=== PATIENT | male | born 1950 | race Caucasian/White ===

== ENCOUNTER → 2016-08-17 | Day surgery (SDC) | payer OTHER ==
[~2016-08-17] MED LIST: ACCUTES FINGER L1; ACETAMINOPHEN 325 MG TAB ONE; CEPH500C3 PO; DICL75 PO; FENO1TAB76 PO; GLUCTAB PO; GLYB5TAB3 PO; LACTATED RINGER'S 1000 ML INJ 1,000 ML ONE; LISI-363 PO; METF-382 PO; MIDAZOLAM HCL 2 MG/2 ML VIAL ONE; MOXIFLOXACIN 0.5% OPHT SOLN 3 ML BTL ONE; OMEP20TA PO; ONDANSETRON HCL 4 MG/2 ML VIAL IV PUSH ONE; PHENYLEPHRINE HCL 10% OPTH SOLN 5 ML BTL ONE; PROPARACAINE HCL 0.5% OPHT SOLN 15 ML BTL RIGHT EYE ONE; PROPOFOL 200 MG/20 ML AMP IV ONE; SIMV20 PO; SULF1TAB47 PO; TRIAMCINOLONE ACETONIDE 40 MG/ML VIAL ONE; [UNRECOGNIZED DRUG - SUPPLY] FINGER L1; prednisoLONE ACETATE 1% OPHT SUSP 5 ML BTL ONE
--- NOTE | 2016-08-19 13:21 | MP ---
cc: TEO DU MD DATE OF SURGERY 08/19/2016 PREOPERATIVE DIAGNOSES 1. Retained nuclear sclerotic cataract material right eye. 2. Possible retinal tear or detachment right eye. POSTOPERATIVE DIAGNOSES 1. Retained nuclear sclerotic cataract material right eye. 2. Possible retinal tear or detachment right eye. PROCEDURE Pars plana vitrectomy, removal of retained nuclear sclerotic cataract, endolaser, air-fluid exchange, insertion of 14% SF6 gas right eye. COMPLICATIONS None. BLOOD LOSS Less 1 cc. ANESTHESIA general Obed. INDICATION FOR PROCEDURE This patient presented with dislocated nuclear sclerotic cataract in his right eye. The patient elected for surgical correction. PROCEDURE NOTE After informed consent was obtained, the right eye was prepped and draped in sterile fashion with Betadine in the conjunctival fornix. A three-port pars plana vitrectomy was established with self-retaining infusion cannula. Core vitreous was evacuated and the nuclear sclerotic cataract fragments were removed with the vitrector. Scleral depression examination revealed a small infratemporal retinal tear which was treated with endolaser. Air-fluid exchange was carried out and 14% SF6 gas was instilled. The temporal clear corneal incision was closed with 10-0 nylon suture. Trocars were removed and sclerotomies were closed. The subconjunctival injection of Ancef and dexamethasone were given. The eye was patched with Tobramycin ointment. The patient was brought to the recovery room in stable condition. He is to continue followup with [facility] for his postoperative care. MD STEVE Ortiz/SSB /8:24 AM /12:35 PM
== END | disposition home or self-care (01) ==
LOC: ESDC 10:52
PROVIDERS: ATTEND Ophthalmology
DX: H25.11 Age-related nuclear cataract, right eye (principal); H33.311 Horseshoe tear of retina without detachment, right eye
CPT/HCPCS: 00145; 67043; J2250; J2405; J3010; J3301; J7120

== ENCOUNTER 2016-08-27 13:33 | Day surgery (SDC) | payer OTHER ==
[~2016-08-27] VITALS: Ht 152.4 cm; Wt 98.0 kg
[~2016-08-27 13:33] MED LIST changes: -ACETAMINOPHEN 325 MG TAB ONE; +ATROPINE SULFATE 1% OPHT SOLN 2 ML BTL ONE; +BUPIVACAINE HCL PF 0.75% 10 ML VIAL ONE; +DEXAMETHASONE SOD PHOS 4 MG/ML VIAL ONE; +EPINEPHrine HCL (1:1000) 1 MG/ML VIAL ONE; +GENTAMICIN SULFATE 80 MG/2 ML VIAL ONE; +LACTATED RINGER'S 1000 ML INJ 1,000 ML IV ONE; -LACTATED RINGER'S 1000 ML INJ 1,000 ML ONE; +LIDOCAINE HCL 2% 50 ML VIAL ONE; -METF-382 PO; -MIDAZOLAM HCL 2 MG/2 ML VIAL ONE; -MOXIFLOXACIN 0.5% OPHT SOLN 3 ML BTL ONE; -PHENYLEPHRINE HCL 10% OPTH SOLN 5 ML BTL ONE; -PROPARACAINE HCL 0.5% OPHT SOLN 15 ML BTL RIGHT EYE ONE; +STERILE WATER FOR INJ 20 ML VIAL ONE; +TOBRAMYCIN/DEXAMETHASONE OPTH OINT 3.5 GM TUBE ONE; +ePHEDrine/NS 25 MG/5 ML SYR IV ONE; -prednisoLONE ACETATE 1% OPHT SUSP 5 ML BTL ONE
[2016-08-27] MEDS ORDERED: METOPROLOL TARTRATE 25 MG TAB PO PRN (14:15)
[2016-08-27] MEDS ORDERED: LACTATED RINGER'S 1000 ML IV PRN (14:15)
[2016-08-27] MEDS ORDERED: POVIDONE IODINE 5% (ANTISEPSIS KIT) 4 APPLICATIONS EACH NARE PRN (14:15)
[2016-08-27] MEDS ORDERED: ATROPINE SULFATE 1% OPHT SOLN 5 ML BTL RIGHT EYE SCH (14:15)
[2016-08-27] MEDS ORDERED: CHLORHEXIDINE GLUCONATE 2 % 1 PACK (2 CLOTHS) TOPICAL PRN (14:15)
[2016-08-27] MEDS ORDERED: INSULIN HUMAN REGULAR 1,000 UNITS/10 ML VIAL SQ PRN (14:15)
[2016-08-27] MEDS ORDERED: SODIUM CHLORID 0.9% 500 ML IV PRN (14:15)
[2016-08-27] MEDS ORDERED: GLYB5TAB3 PO (14:17)
[2016-08-27] MEDS ORDERED: METF-382 PO (14:17)
[2016-08-27 14:36] VITALS: BP 132/70; PULSE 89; RESP 16; TEMP 97.8; O2SAT 98
[2016-08-27] MEDS ORDERED: TOBRAMYCIN 0.3%/DEXAMETHASONE 0.1% OPHT SUSP 5 ML BTL ONE (14:39)
[2016-08-27] MEDS ORDERED: ATROPINE SULFATE 1% OPHT SOLN 2 ML BTL ONE (14:56)
[2016-08-27] MEDS ORDERED: TROPICAMIDE 1% OPHT SOLN 15 ML BTL ONE (14:56)
[2016-08-27] MEDS: CYCLOPENTOLATE HCL 1% OPHT SOLN 2 ML BTL RIGHT EYE SCH ×2 (16:25→16:40)
[2016-08-27] MEDS: TROPICAMIDE 1% OPTH SOLN 2 ML BTL RIGHT EYE SCH ×2 (16:25→16:40)
[2016-08-27] MEDS: PHENYLEPHRINE HCL 2.5% OPTH SOLN 2 ML BTL RIGHT EYE SCH ×2 (16:25→16:40)
[2016-08-27] MEDS ORDERED: FAMOTIDINE 20 MG/2 ML VIAL IV PUSH ONE (16:38)
[2016-08-27] MEDS ORDERED: MIDAZOLAM HCL 2 MG/2 ML VIAL IV PUSH ONE (16:38)
[2016-08-27] MEDS ORDERED: FAMOTIDINE 20 MG/2 ML VIAL ONE (16:57)
[2016-08-27] MEDS ORDERED: MIDAZOLAM HCL 2 MG/2 ML VIAL ONE (16:57)
[2016-08-27] MEDS ORDERED: prednisoLONE ACETATE 1% OPHT SUSP 5 ML BTL RIGHT EYE ONE (17:00)
[2016-08-27] MEDS ORDERED: MOXIFLOXACIN 0.5% OPHT SOLN 3 ML BTL RIGHT EYE ONE (17:00)
[2016-08-27] MEDS ORDERED: BALANCED SALT SOLN OPHT IRRIG 15 ML BTL ONE (17:15)
[2016-08-27] MEDS ORDERED: STERILE WATER FOR INJ 20 ML VIAL ONE (19:09)
[2016-08-27] MEDS ORDERED: ceFAZolin INJ 1,000 MG VIAL ONE (19:09)
[2016-08-27] MEDS ORDERED: TOBRAMYCIN/DEXAMETHASONE OPTH OINT 3.5 GM TUBE ONE (19:25)
[2016-08-27] MEDS ORDERED: DO NOT ADM ANY ANTICOAGULANT DRUGS PRN (19:38)
[2016-08-27 21:45] VITALS: BP 145/73; PULSE 83; RESP 20; TEMP 98.1; O2SAT 93
--- NOTE | 2016-08-28 14:39 | EKG ---
Date Performed: 08/27/2016 Time Performed: 14:21:11 PTAGE: 65 years EKG: Sinus rhythm NORMAL ECG NO PREVIOUS TRACING DOCTOR: Eugenio Shah Interpretating Date/Time 08/28/2016 14:37:59
--- NOTE | 2016-08-29 10:47 | MP ---
cc: TEO DU MD DATE OF SURGERY: 08/28/2016 PREOPERATIVE DIAGNOSIS: Retinal detachment, right eye. POSTOPERATIVE DIAGNOSIS: Retinal detachment, right eye. OPERATION: Pars vitrectomy, retinal detachment repair, scleral buckle placement, air-fluid exchange, endolaser, insertion of 16% C3F8 gas right eye. COMPLICATIONS None BLOOD LOSS Less than [address] Lindsay. INDICATIONS FOR PROCEDURE: This is a delightful patient who presented with retinal detachment of his right eye. The patient originally underwent removal of dislocated cataract and was found to have a inferior retinal break. The patient was unable to maintain face-down postoperative positioning and developed a retinal detachment. The patient elected for surgical correction at this time point. PROCEDURE NOTE: After informed consent was obtained, the patient was brought to the operating room. General anesthesia was established. The right eye was prepped and draped in sterile fashion with Betadine in the conjunctival fornix. A 360 degrees conjunctival peritomy was carried out and the rectus muscles were isolated. A 42 band scleral buckle was placed and secured and each was placed under the rectus muscles and secured to each quadrant with 5-0 Mersiline. A 72 sleeve joined into the pau and the superior temporal quadrant. A three port pars plana vitrectomy was then established with self-retaining infusion cannula. Remaining intravitreous was removed. Perfluoron was instilled and the retina reattached. Endolaser was completed. The height to the scleral buckle was adjusted. Scleral depression examination revealed no untreated retinal holes, tears or detachments. Air-fluid exchange was carried out and the retina remained nicely attached. 16% C3F8 gas was instilled. The trocars removed. Sclerotomies closed. Conjunctiva was reapproximated with 6-0 plain gut. Subconjunctival injection of Ancef, dexamethasone were given. The eye was patched with tobramycin ointment. The patient was brought to the Recovery Room in stable condition and will continue to follow up with [facility] for his postoperative care. MD STEVE Ortiz/CARTER /7:47 AM /10:36 AM
== END 2016-08-27 21:45 | disposition home or self-care (01) ==
LOC: HSDC 13:33
PROVIDERS: ATTEND Ophthalmology
DX: H33.21 Serous retinal detachment, right eye (principal); E11.9 Type 2 diabetes mellitus without complications; F32.9 Major depressive disorder, single episode, unspecified; E78.00 Pure hypercholesterolemia, unspecified; I10 Essential (primary) hypertension; K21.9 Gastro-esophageal reflux disease without esophagitis; E66.9 Obesity, unspecified; Z68.41 Body mass index [BMI] 40.0-44.9, adult; Z79.84 Long term (current) use of oral hypoglycemic drugs; Z87.891 Personal history of nicotine dependence
CPT/HCPCS: 93005; J0171; J0690; J1100; J1580; J2250; J2405; J3010; J3301; J7120